=== PATIENT | female | born 1945 | race Two or more races ===

== ENCOUNTER 2023-05-12 12:43 | Emergency (ER) | payer OTHER, MEDICAID ==
[~2023-05-12] VITALS: Ht 157.5 cm; Wt 77.2 kg
[2023-05-12 13:48] LABS: Basophils # (auto) 0.1 10 ^3/uL (0-0.2); Basophils % (auto) 0.4 % (0.0-2.0); Eosinophils # (auto) 0 10 ^3/uL (0-0.8); Eosinophils % (auto) 0.1 % (0.0-7.0); Hematocrit 45.4 % (36.0-46.0); Lymphocytes # (auto) 1.2 10 ^3/uL (0.4-5.4); Lymphocytes % (auto) 9.1 % (10.0-50.0); Mean Corpuscular Hemoglobin 30.5 pg (28.0-32.0); Mean Corpuscular Hgb Conc. 33.1 g/dL (32.0-36.0); Monocytes # (auto) 1.1 10 ^3/uL (0-1.3); Monocytes % (auto) 8.8 % (0.0-12.0); Neutrophils # (auto) 10.6 10 ^3/uL (1.6-8.6); Neutrophils % (auto) 81.6 % (37.0-80.0); Nucleated Red Blood Cells % 0.1 %; Red Blood Cells 4.93 10^6/uL (4.0-5.20)
[2023-05-12 14:42] LABS: Urine Bacteria FEW /hpf (None Seen); Urine Blood 1+ /uL (Negative); Urine Clarity HAZY (Clear); Urine Color Yellow (Yellow); Urine Mucus FEW (None Seen); Urine Protein, UAD 2+ (Negative); Urine Specific Gravity 1.015 (1.001-1.035); Urine WBC 178 /hpf (0 - 5)
[2023-05-12] MEDS ORDERED: NITR-87 PO (15:07)
[2023-05-12] MEDS ORDERED: cefTRIAXone SOD 1,000 MG VL IM ONE (15:15)
[2023-05-12 15:54] LABS: Alanine Aminotransferase 19 U/L (7-40); Albumin 4.4 g/dL (3.2-4.8); Alkaline Phosphatase 77 U/L (46-116); Anion Gap 10.6 (5-15); Aspartate Aminotransferase 17 U/L (13-40); BUN/Creatinine Ratio 8.9 (10.0-20.0); Blood Urea Nitrogen 9 mg/dL (9-23); Calcium 9.1 mg/dL (8.7-10.4); Carbon Dioxide 18.4 mmol/L (20-30); Chloride 110 mmol/L (98-107); Glucose 154 mg/dL (74-106); Lipase 39 U/L (12-53); Sodium 139 mmol/L (136-145)
[2023-05-12 15:55] LABS: Bilirubin, Total 0.6 mg/dL (0.2-1.0); Total Protein 7.1 g/dL (5.7-8.2)
[2023-05-12] MEDS ORDERED: POTASSIUM EFFERVESENT TAB 25 MEQ PO ONE (16:15)
[2023-05-12] MEDS ORDERED: POTASSIUM EFFERVESENT TAB 25 MEQ ONE (17:19)
[2023-05-12 17:28] VITALS: BP 123/67; PULSE 67; RESP 18; TEMP 99; O2SAT 100
== END 2023-05-12 17:30 | disposition home or self-care (01) ==
LOC: ER 12:43
DX: N39.0 Urinary tract infection, site not specified (principal); R05.9 Cough, unspecified; I10 Essential (primary) hypertension; E78.5 Hyperlipidemia, unspecified
CPT/HCPCS: 36415; 70450; 71045; 74176; 80053; 81001; 83690; 84484; 85025; 93005; 96372; 99285; J0696

== ENCOUNTER 2023-09-08 15:25 | Emergency (ER) | payer OTHER, MEDICAID ==
[~2023-09-08] VITALS: Ht 152.4 cm; Wt 73.6 kg
[~2023-09-08 15:25] MED LIST: NITR-87 PO
[2023-09-08] MEDS ORDERED: HYDROcodone-ACET 5/325MG TAB PO ONE (19:00)
[2023-09-08] MEDS ORDERED: IBUP-1454 PO ×3 (19:00→19:37)
[2023-09-08] MEDS ORDERED: ACE3T PO ×3 (19:00→19:37)
[2023-09-08 19:45] VITALS: BP 150/65; PULSE 71; RESP 18; O2SAT 95
== END 2023-09-08 19:48 | disposition home or self-care (01) ==
LOC: ER 15:25
DX: S16.1XXA Strain of muscle, fascia and tendon at neck level, initial encounter (principal); S20.214A Contusion of middle front wall of thorax, initial encounter; S40.011A Contusion of right shoulder, initial encounter; I10 Essential (primary) hypertension; E78.5 Hyperlipidemia, unspecified; Z79.899 Other long term (current) drug therapy; V89.2XXA Person injured in unspecified motor-vehicle accident, traffic, initial encounter; Y93.I9 Activity, other involving external motion; Y92.89 Other specified places as the place of occurrence of the external cause; Y99.8 Other external cause status
CPT/HCPCS: 70450; 71046

== ENCOUNTER 2023-09-15 11:03 | Emergency (ER) | payer OTHER, MEDICAID ==
[~2023-09-15] VITALS: Ht 157.5 cm; Wt 78.1 kg
[~2023-09-15 11:03] MED LIST changes: +ACE3T PO; +IBUP-1454 PO
[2023-09-15 11:38] LABS: Basophils # (auto) 0.1 10 ^3/uL (0-0.2); Eosinophils # (auto) 0.3 10 ^3/uL (0-0.8); Eosinophils % (auto) 2.9 % (0.0-7.0); Hemoglobin 13.7 g/dL (12.2-16.2); Lymphocytes # (auto) 1.7 10 ^3/uL (0.4-5.4); Lymphocytes % (auto) 18.5 % (10.0-50.0); Mean Corpuscular Hemoglobin 29.8 pg (28.0-32.0); Mean Corpuscular Hgb Conc. 32.7 g/dL (32.0-36.0); Mean Corpuscular Volume 91.2 fL (80.0-100.0); Monocytes # (auto) 0.5 10 ^3/uL (0-1.3); Monocytes % (auto) 5.7 % (0.0-12.0); Neutrophils # (auto) 6.4 10 ^3/uL (1.6-8.6); Neutrophils % (auto) 71.9 % (37.0-80.0); Nucleated Red Blood Cells % 0.1 %; White Blood Cell 8.9 10^3/uL (4.4-10.8)
[2023-09-15 11:51] LABS: Alanine Aminotransferase 13 U/L (7-40); Albumin 4.2 g/dL (3.2-4.8); Alkaline Phosphatase 72 U/L (46-116); Anion Gap 7 (5-15); Aspartate Aminotransferase 12 U/L (13-40); BUN/Creatinine Ratio 15.2 (10.0-20.0); Blood Urea Nitrogen 12 mg/dL (9-23); Calcium 8.9 mg/dL (8.7-10.4); Carbon Dioxide 24 mmol/L (20-30); Chloride 109 mmol/L (98-107); Glucose 134 mg/dL (74-106); Magnesium 1.9 mg/dL (1.6-2.6); Potassium 3.7 mmol/L (3.5-5.1); Sodium 140 mmol/L (136-145)
[2023-09-15 11:52] LABS: Bilirubin, Total 0.6 mg/dL (0.2-1.0); Total Protein 6.5 g/dL (5.7-8.2)
[2023-09-15 12:05] LABS: INR 0.94 (0.9-1.15); Partial Thromboplastin Time 33.3 SEC (24.5-34.5); Prothrombin Time 10.1 sec (9.3-11.8)
[2023-09-15] MEDS ORDERED: METH-1181 PO (13:22)
[2023-09-15] MEDS ORDERED: KETOROLAC TROMETH 30 MG/ML 1ML VIAL IM ONE (13:30)
[2023-09-15 14:20] VITALS: BP 148/57; PULSE 75; RESP 16; TEMP 98; O2SAT 90
== END 2023-09-15 14:26 | disposition home or self-care (01) ==
LOC: ER 11:03
DX: R07.89 Other chest pain (principal); G44.209 Tension-type headache, unspecified, not intractable; E78.5 Hyperlipidemia, unspecified; I10 Essential (primary) hypertension
CPT/HCPCS: 36415; 70450; 71045; 80053; 83735; 83880; 84484; 85025; 85610; 85730; 93005; 96372; 99285; J1885

== ENCOUNTER 2024-01-05 08:31 | Inpatient (IN) | payer OTHER, MEDICAID ==
[~2024-01-05] VITALS: Ht 157.5 cm; Wt 81.8 kg
[~2024-01-05 08:31] MED LIST changes: +METH-1181 PO
[2024-01-05 09:37] LABS: Alanine Aminotransferase 16 U/L (7-40); Albumin 4.6 g/dL (3.2-4.8); Alkaline Phosphatase 83 U/L (46-116); Anion Gap 7 (5-15); Aspartate Aminotransferase 20 U/L (13-40); Blood Urea Nitrogen 10 mg/dL (9-23); Calcium 9.7 mg/dL (8.5-10.1); Carbon Dioxide 28 mmol/L (20-30); Chloride 106 mmol/L (98-107); Glucose 159 mg/dL (74-106); Potassium 3.2 mmol/L (3.5-5.1); Sodium 141 mmol/L (136-145)
[2024-01-05 09:38] LABS: Bilirubin, Total 0.8 mg/dL (0.2-1.0); Total Protein 7.1 g/dL (5.7-8.2)
[2024-01-05] MEDS: NITROGLYCERIN 0.4 MG SL TAB SL ONE (09:45)
[2024-01-05 09:47] LABS: Basophils # (auto) 0.1 10 ^3/uL (0-0.2); Basophils % (auto) 0.7 % (0.0-2.0); Eosinophils # (auto) 0 10 ^3/uL (0-0.8); Eosinophils % (auto) 0.2 % (0.0-7.0); Hematocrit 47.1 % (36.0-46.0); Hemoglobin 15.6 g/dL (12.2-16.2); Lymphocytes # (auto) 1.3 10 ^3/uL (0.4-5.4); Lymphocytes % (auto) 10.7 % (10.0-50.0); Mean Corpuscular Hemoglobin 29.6 pg (28.0-32.0); Mean Corpuscular Hgb Conc. 33.2 g/dL (32.0-36.0); Monocytes # (auto) 0.5 10 ^3/uL (0-1.3); Neutrophils % (auto) 84.4 % (37.0-80.0); Nucleated Red Blood Cells % 0.1 %; Red Blood Cells 5.29 10^6/uL (4.0-5.20); Red Cell Distribution Width 14.9 % (11.8-14.3); White Blood Cell 11.8 10^3/uL (4.4-10.8)
[2024-01-05] MEDS: ASPirin 325 MG TAB PO ONE (09:56)
[2024-01-05 10:32] LABS: Urine Bacteria FEW /hpf (None Seen); Urine Blood Negative /uL (Negative); Urine Clarity Turbid (Clear); Urine Color Light-Yellow (Yellow); Urine Mucus FEW (None Seen); Urine Protein, UAD TRACE (Negative); Urine Specific Gravity 1.014 (1.001-1.035); Urine Urobilinogen Normal (Negative); Urine WBC 2 /hpf (0 - 5); Urine pH 6.5 (5.0-9.0)
[2024-01-05 10:36] VITALS: PULSE 66; RESP 16; O2SAT 95
[2024-01-05] MEDS ORDERED: ALBUTEROL SULF 2.5 MG/0.5ML(0.5%) NEB SOLN NEB PRN ×2 (11:15→11:45)
[2024-01-05] MEDS ORDERED: MORPHINE SULFATE INJ 2 MG/ml SYRG IV PRN (11:15)
[2024-01-05] MEDS ORDERED: ONDANSETRON HCL 4 MG/2 ML VIAL IV PRN (11:15)
[2024-01-05] MEDS ORDERED: NITROGLYCERIN 0.4 MG SL TAB SL PRN (11:15)
[2024-01-05] MEDS ORDERED: ACETAMINOPHEN 325 MG TAB PO PRN (11:15)
[2024-01-05] MEDS ORDERED: METHOCARBAMOL 500 MG TAB PO PRN (11:30)
[2024-01-05 12:12] LABS: Triglycerides 106 mg/dL (< 150)
[2024-01-05 12:13] LABS: LDL Cholesterol 75 mg/dL (< 100)
[2024-01-05 12:14] LABS: Cholesterol 163 mg/dL (< 200); HDL Cholesterol 61 mg/dL (40-59)
[2024-01-05] MEDS: cefTRIAXone 1GM/50ML D5W 50 ML IV ONE (12:43)
[2024-01-05] MEDS: metroNIDAZOLE 500MG/100ML 100 ML IV ONE (12:43)
[2024-01-05] MEDS: PANTOPRAZOLE 40 MG/10 ML VIAL INJ IV ONE (12:43)
[2024-01-05] MEDS: POTASSIUM EFFERVESENT TAB 25 MEQ PO ONE (12:43)
[2024-01-05] MEDS: SODIUM CHLORIDE 0.9% 1,000 ML IV SCH (12:53)
[2024-01-05 18:00] VITALS: O2SAT 96
[2024-01-05 18:35] VITALS: O2SAT 2
[2024-01-05 19:24] VITALS: BP 135/50; PULSE 66; RESP 18; TEMP 98.3; O2SAT 96
[2024-01-05] MEDS ORDERED: ROSU10TA16 PO (20:22)
[2024-01-05] MEDS ORDERED: ERGO2000 PO (20:22)
[2024-01-05] MEDS ORDERED: AML5T PO (20:22)
[2024-01-05] MEDS ORDERED: ASPI81CH59 PO (20:22)
[2024-01-05] MEDS ORDERED: LEVO25TA6 PO (20:26)
[2024-01-05] MEDS ORDERED: DICL50TA4 PO (20:26)
[2024-01-05] MEDS ORDERED: PARO1TAB33 PO (20:26)
[2024-01-05] MEDS ORDERED: QUIN10TA PO (20:26)
[2024-01-05] MEDS ORDERED: CLON0.5T3 PO (20:27)
[2024-01-05 20:59] VITALS: BP 146/52; PULSE 62; RESP 14; TEMP 98.1; O2SAT 91
[2024-01-05] MEDS: TEMAZEPAM 15 MG CAP PO ONE (22:48)
[2024-01-05] MEDS: metroNIDAZOLE 500MG/100ML 100 ML IV SCH (23:05)
[2024-01-06] VITALS (7 sets, daily range): BP systolic 126–150; BP diastolic 50–61; PULSE 56–98; RESP 14–18; TEMP 79.9–98.6; O2SAT 90–97
[2024-01-06 07:29] LABS: Basophils # (auto) 0.1 10 ^3/uL (0-0.2); Basophils % (auto) 0.8 % (0.0-2.0); Eosinophils # (auto) 0.1 10 ^3/uL (0-0.8); Eosinophils % (auto) 1.1 % (0.0-7.0); Hematocrit 42.7 % (36.0-46.0); Hemoglobin 14.2 g/dL (12.2-16.2); Lymphocytes # (auto) 2.3 10 ^3/uL (0.4-5.4); Lymphocytes % (auto) 25.2 % (10.0-50.0); Mean Corpuscular Hemoglobin 29.8 pg (28.0-32.0); Mean Corpuscular Hgb Conc. 33.3 g/dL (32.0-36.0); Mean Corpuscular Volume 89.4 fL (80.0-100.0); Monocytes # (auto) 0.7 10 ^3/uL (0-1.3); Monocytes % (auto) 7.3 % (0.0-12.0); Neutrophils % (auto) 65.6 % (37.0-80.0); Nucleated Red Blood Cells % 0.1 %; Red Blood Cells 4.78 10^6/uL (4.0-5.20); Red Cell Distribution Width 14.9 % (11.8-14.3); White Blood Cell 9.2 10^3/uL (4.4-10.8)
[2024-01-06 07:49] LABS: Alanine Aminotransferase 10 U/L (7-40); Albumin 4.1 g/dL (3.2-4.8); Alkaline Phosphatase 71 U/L (46-116); Anion Gap 8 (5-15); Aspartate Aminotransferase 17 U/L (13-40); BUN/Creatinine Ratio 8.2 (10.0-20.0); Blood Urea Nitrogen 7 mg/dL (9-23); Calcium 8.9 mg/dL (8.5-10.1); Carbon Dioxide 27 mmol/L (20-30); Chloride 108 mmol/L (98-107); Glucose 93 mg/dL (74-106); Potassium 3.2 mmol/L (3.5-5.1); Sodium 143 mmol/L (136-145)
[2024-01-06 07:50] LABS: Bilirubin, Total 0.6 mg/dL (0.2-1.0); Total Protein 6.4 g/dL (5.7-8.2)
[2024-01-06] MEDS: cefTRIAXone 1GM/50ML D5W 50 ML IV SCH (09:06)
[2024-01-06] MEDS: PANTOPRAZOLE 40 MG/10 ML VIAL INJ IV SCH (09:07)
[2024-01-06] MEDS: ENOXAPARIN SOD 40 MG/0.4 ML SYRINGE SC SCH (09:07)
[2024-01-06] MEDS: ASPirin 81 mg TAB PO SCH (09:07)
[2024-01-06] MEDS: DOCUSATE SOD 100 MG CAP PO ONE (13:14)
[2024-01-06] MEDS: POTASSIUM CHL 20 Meq TABLET PO ONE (13:14)
[2024-01-06] MEDS: TEMAZEPAM 15 MG CAP PO PRN (22:49)
[2024-01-06] MEDS: DOCUSATE SOD 100 MG CAP PO SCH (22:49)
[2024-01-07] VITALS (7 sets, daily range): BP systolic 131–151; BP diastolic 56–78; PULSE 50–63; RESP 18–22; TEMP 97.8–98.6; O2SAT 92–100
== END 2024-01-07 14:28 | disposition home or self-care (01) | DRG 392 ==
LOC: ER 08:31 → TELE 11:17 → TELE-WESTW 11:17
PROVIDERS: ADMIT Nurse Practitioner Family; ATTEND Internal Medicine Geriatric Medicine
DX: A08.4 Viral intestinal infection, unspecified (principal); N39.0 Urinary tract infection, site not specified; F32.A Depression, unspecified; I10 Essential (primary) hypertension; E87.6 Hypokalemia; R73.9 Hyperglycemia, unspecified; E78.00 Pure hypercholesterolemia, unspecified; K59.00 Constipation, unspecified; Z79.899 Other long term (current) drug therapy
CPT/HCPCS: 36415; 70450; 74176; 80053; 80061; 81001; 83036; 83880; 84443; 84484; 85025; 87040; 93005; 93306; 93886; 96365; 96375; C9113; G0378; J3490

== ENCOUNTER 2024-04-10 14:23 | Inpatient (IN) | payer OTHER, MEDICAID ==
[~2024-04-10] VITALS: Ht 157.5 cm; Wt 68.1 kg
[~2024-04-10 14:23] MED LIST changes: -ACE3T PO; +AML5T PO; +ASPI81CH59 PO; +CLON0.5T3 PO; +DICL50TA4 PO; +ERGO2000 PO; -IBUP-1454 PO; +LEVO25TA6 PO; -METH-1181 PO; -NITR-87 PO; +PARO1TAB33 PO; +QUIN10TA PO; +ROSU10TA16 PO
[2024-04-10 15:03] LABS: Urine Bacteria FEW /hpf (None Seen); Urine Blood Negative /uL (Negative); Urine Color Yellow (Yellow); Urine Hyaline Cast FEW /lpf (0 - 2); Urine Mucus FEW (None Seen); Urine Protein, UAD 1+ (Negative); Urine Specific Gravity 1.021 (1.001-1.035); Urine Urobilinogen Normal (Negative); Urine WBC 7 /hpf (0 - 5)
[2024-04-10 15:08] LABS: Urine Clarity Hazy (Clear)
[2024-04-10 15:26] LABS: Basophils # (auto) 0.1 10 ^3/uL (0-0.2); Basophils % (auto) 0.8 % (0.0-2.0); Eosinophils # (auto) 0 10 ^3/uL (0-0.8); Eosinophils % (auto) 0.4 % (0.0-7.0); Hematocrit 41.8 % (36.0-46.0); Hemoglobin 14.4 g/dL (12.2-16.2); Lymphocytes # (auto) 1.4 10 ^3/uL (0.4-5.4); Lymphocytes % (auto) 13.1 % (10.0-50.0); Mean Corpuscular Hemoglobin 31.4 pg (28.0-32.0); Mean Corpuscular Hgb Conc. 34.5 g/dL (32.0-36.0); Mean Corpuscular Volume 90.8 fL (80.0-100.0); Monocytes # (auto) 0.6 10 ^3/uL (0-1.3); Neutrophils # (auto) 8.2 10 ^3/uL (1.6-8.6); Neutrophils % (auto) 79.7 % (37.0-80.0); Nucleated Red Blood Cells % 0.1 %; Red Cell Distribution Width 15.2 % (11.8-14.3); White Blood Cell 10.3 10^3/uL (4.4-10.8)
[2024-04-10 15:50] LABS: Alanine Aminotransferase 16 U/L (7-40); Albumin 4.8 g/dL (3.2-4.8); Alkaline Phosphatase 104 U/L (46-116); Anion Gap 10 (5-15); Aspartate Aminotransferase 17 U/L (13-40); BUN/Creatinine Ratio 11.5 (10.0-20.0); Bilirubin, Total 0.9 mg/dL (0.2-1.0); Blood Urea Nitrogen 12 mg/dL (9-23); Calcium 10.3 mg/dL (8.7-10.4); Carbon Dioxide 25 mmol/L (20-30); Chloride 107 mmol/L (98-107); Glucose 159 mg/dL (74-106); Potassium 3.5 mmol/L (3.5-5.1); Sodium 142 mmol/L (136-145)
[2024-04-10 15:51] LABS: Total Protein 7.2 g/dL (5.7-8.2)
[2024-04-10] MEDS: ONDANSETRON HCL 4 MG/2 ML VIAL IV ONE (15:57)
[2024-04-10] MEDS: PANTOPRAZOLE 40 MG/10 ML VIAL INJ IV ONE (15:57)
[2024-04-10] MEDS: SODIUM CHLORIDE 0.9% 500 ML IVB ONE (15:58)
[2024-04-10] MEDS ORDERED: MORPHINE SULFATE INJ 2 MG/ml SYRG IV PRN (18:30)
[2024-04-10] MEDS ORDERED: ONDANSETRON HCL 4 MG/2 ML VIAL IV PRN (18:30)
[2024-04-10] MEDS ORDERED: DOCUSATE SOD 100 MG CAP PO PRN (18:30)
[2024-04-10] MEDS ORDERED: PANTOPRAZOLE 40 MG/10 ML VIAL INJ IV ONE (18:30)
[2024-04-10] MEDS ORDERED: TEMAZEPAM 15 MG CAP PO PRN (18:30)
[2024-04-10] MEDS ORDERED: NITROGLYCERIN 0.4 MG SL TAB SL PRN (18:30)
[2024-04-10] MEDS: SODIUM CHLORIDE 0.9% 1,000 ML IV SCH (19:46)
[2024-04-10 20:14] VITALS: BP 163/61; PULSE 58; RESP 20; TEMP 98; O2SAT 92
[2024-04-10 20:19] VITALS: PULSE 58; RESP 18; O2SAT 98
[2024-04-10] MEDS: ACETAMINOPHEN 325 MG TAB PO PRN (21:52)
[2024-04-10] MEDS: PANTOPRAZOLE 40 MG/10 ML VIAL INJ IV SCH (21:52)
[2024-04-10 22:05] LABS: Hematocrit 42.2 % (36.0-46.0)
[2024-04-10 23:09] VITALS: BP 157/63; PULSE 59; RESP 18; TEMP 97.8; O2SAT 96
[2024-04-11 00:39] VITALS: BP 176/74; PULSE 62; RESP 16; TEMP 97.6; O2SAT 97
[2024-04-11 01:00] VITALS: BP 176/74; PULSE 62; RESP 16; TEMP 97.6; O2SAT 97
[2024-04-11] MEDS: hydrALAZINE HCL 20 MG/ML VL IV PRN (01:16)
[2024-04-11] MEDS ORDERED: LISI20TA56 PO (02:09)
[2024-04-11] MEDS ORDERED: ZOLP10TA6 PO (02:09)
[2024-04-11] MEDS ORDERED: BUPR75TA96 PO (02:12)
[2024-04-11 05:00] VITALS: BP 114/49; PULSE 68; RESP 18; TEMP 98.4; O2SAT 94
[2024-04-11 07:10] LABS: Basophils # (auto) 0.1 10 ^3/uL (0-0.2); Eosinophils # (auto) 0.2 10 ^3/uL (0-0.8); Eosinophils % (auto) 2.2 % (0.0-7.0); Hematocrit 37.5 % (36.0-46.0); Hemoglobin 12.8 g/dL (12.2-16.2); Lymphocytes # (auto) 1.7 10 ^3/uL (0.4-5.4); Lymphocytes % (auto) 21.1 % (10.0-50.0); Mean Corpuscular Hemoglobin 31.1 pg (28.0-32.0); Mean Corpuscular Hgb Conc. 34.2 g/dL (32.0-36.0); Mean Corpuscular Volume 90.9 fL (80.0-100.0); Monocytes # (auto) 0.7 10 ^3/uL (0-1.3); Monocytes % (auto) 9.3 % (0.0-12.0); Neutrophils # (auto) 5.3 10 ^3/uL (1.6-8.6); Neutrophils % (auto) 66.4 % (37.0-80.0); Nucleated Red Blood Cells % 0.1 %; Red Blood Cells 4.12 10^6/uL (4.0-5.20); White Blood Cell 7.9 10^3/uL (4.4-10.8)
[2024-04-11 07:14] LABS: Alanine Aminotransferase 12 U/L (7-40); Alkaline Phosphatase 81 U/L (46-116); Anion Gap 7 (5-15); Aspartate Aminotransferase 13 U/L (13-40); BUN/Creatinine Ratio 11.3 (10.0-20.0); Bilirubin, Total 0.8 mg/dL (0.2-1.0); Blood Urea Nitrogen 9 mg/dL (9-23); Calcium 9.4 mg/dL (8.7-10.4); Carbon Dioxide 26 mmol/L (20-30); Chloride 109 mmol/L (98-107); Glucose 85 mg/dL (74-106); Sodium 142 mmol/L (136-145); Total Protein 6.1 g/dL (5.7-8.2)
[2024-04-11 09:06] VITALS: BP 128/51; PULSE 70; RESP 17; TEMP 98.1; O2SAT 95
[2024-04-11 10:25] LABS: Hematocrit 37.7 % (36.0-46.0); Hemoglobin 12.9 g/dL (12.2-16.2)
[2024-04-11 14:10] VITALS: BP 135/51; PULSE 63; RESP 17; TEMP 98.3; O2SAT 94
[2024-04-11] MEDS: POTASSIUM EFFERVESENT TAB 25 MEQ PO ONE (15:20)
== END 2024-04-11 17:12 | disposition home or self-care (01) | DRG 446 ==
LOC: ER 14:23 → OVERFLOW 18:28 → EAST 18:28
PROVIDERS: ADMIT Nurse Practitioner Family; ATTEND Nurse Practitioner Acute Care
DX: K80.50 Calculus of bile duct without cholangitis or cholecystitis without obstruction (principal); E78.5 Hyperlipidemia, unspecified; E86.0 Dehydration; I10 Essential (primary) hypertension; F32.A Depression, unspecified; Z79.82 Long term (current) use of aspirin; Z79.899 Other long term (current) drug therapy; Z87.891 Personal history of nicotine dependence
CPT/HCPCS: 36415; 70450; 74181; 76705; 80053; 81001; 83690; 85014; 85018; 85025; G0378; J2405; J2470